=== PATIENT | male | born 2000 | race Caucasian/White ===

== ENCOUNTER 2023-04-26 16:56 | Emergency (ER) | payer OTHER ==
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
[2023-04-26 19:40] VITALS: BP 126/72; PULSE 97; RESP 18; TEMP 97.9
== END 2023-04-26 19:32 | disposition home or self-care (01) ==
LOC: EC 16:56
DX: M25.512 Pain in left shoulder (principal); F17.290 Nicotine dependence, other tobacco product, uncomplicated; V43.52XA Car driver injured in collision with other type car in traffic accident, initial encounter; Y92.410 Unspecified street and highway as the place of occurrence of the external cause
CPT/HCPCS: 72050; 99284

== ENCOUNTER 2024-05-21 13:14 | Emergency (ER) | payer OTHER ==
[2024-05-21 13:44] VITALS: RESP 18; TEMP 98.1
[2024-05-21 14:08] LABS: Basophils % (A) 0 %; Eosinophils % (A) 1 %; HCT 40.9 % (39.0-53.0); HGB 13.8 gm/dL (13.0-17.5); Lymphocytes # (A) 1.5 k/uL (1.0-4.8); Lymphocytes % (A) 27 %; MCHC 33.7 g/dL (31.0-37.0); MCV 94.9 fL (80.0-100.0); Monocytes # (A) 0.2 k/uL (0-1.0); Monocytes % (A) 3 %; Neutrophils # (A) 3.8 k/uL (1.3-7.7); Neutrophils % (A) 69 %; Platelet Count 305 k/uL (150-450); RBC 4.31 m/uL (4.30-5.90); RDW 13.2 % (11.5-15.5); WBC 5.5 k/uL (3.8-10.6)
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
[2024-05-21 14:17] LABS: ALT 35 U/L (4-49); AST 40 U/L (17-59); African American GFR (CKD) >90 (>60 ml/min/1.73 sqM); Albumin 4.5 g/dL (3.5-5.0); Alkaline Phosphatase 49 U/L (38-126); Anion Gap 8 mmol/L; Blood Urea Nitrogen 8 mg/dL (9-20); Calcium 9.1 mg/dL (8.4-10.2); Carbon Dioxide 22 mmol/L (22-30); Chloride 111 mmol/L (98-107); Glucose 104 mg/dL (74-99); Non-African American GFR(CKD) >90 (>60 ml/min/1.73 sqM); Potassium 3.7 mmol/L (3.5-5.1); Sodium 141 mmol/L (137-145); Total Bilirubin 0.7 mg/dL (0.2-1.3); Total Protein 6.9 g/dL (6.3-8.2)
[2024-05-21] MEDS: KETOROLAC 15 MG/ML 1 ML VIAL IVP STA (14:19)
[2024-05-21 14:20] LABS: Partial Thromboplastin Time 24.4 sec (22.0-30.0)
[2024-05-21] MEDS: LIDOCAINE 1% INJ 10MG/ML (20 ML MDV) SQ ONE (14:20)
[2024-05-21] MEDS: DIPH,PERTUS(ACELL)TETVAC-LF 0.5 ML VIAL IM ONE (14:21)
--- NOTE | 2024-05-21 14:27 | XR ---
EXAMINATION TYPE: XR wrist limited RT DATE OF EXAM: 05/21/2024 CLINICAL HISTORY: pain TECHNIQUE: Frontal, lateral and oblique images of the right wrist are obtained. COMPARISON: None. FINDINGS: There is no acute fracture/dislocation evident. The joint spaces appear within normal limits. Radiop aque densities are seen in the medial and lateral aspects of the right wrist. There is a vague linear radiolucency seen on the lateral image measuring 3.2 mm which could reflect small foreign body. Soft tissue injury seen. IMPRESSION: As above [facility], , 05/21/2024 2:25 PM
[2024-05-21] MEDS ORDERED: SODIUM CHLORIDE 0.9% 1,000 ML IV STA (17:56)
[2024-05-21] MEDS: LIDOCAINE 1%-EPI 1:100,000 20 ML VIAL SQ ONE (18:20)
[2024-05-21] MEDS: ACET/COD 300 MG/30 MG STARTER PACK 6 TAB BTL PO STA (19:37)
[2024-05-21 19:48] VITALS: BP 121/77; PULSE 90
== END 2024-05-21 19:44 | disposition home or self-care (01) ==
LOC: EC 13:14
CPT/HCPCS: 12005; 36415; 80053; 85025; 85610; 85730; 90471; 90715; 96374; 99283

== ENCOUNTER 2024-06-08 11:46 | Emergency (ER) | payer OTHER ==
--- NOTE | 2024-06-08 12:13 | ED ---
ENT HPI - General Source: patient, family Mode of arrival: ambulatory Limitations: no limitations - History of Present Illness Onset/Timin -: days(s) <Ayush Corado - Last Filed: 06/08/24 12:11> <Bradford Osullivan - Last Filed: 06/08/24 17:15> - General Stated complaint: dental pain Time Seen by Provider: 06/08/24 12:01 - History of Present Illness Initial comments: Quick note: This is a 24-year-old male presenting with significant other for right cheek swelling which started last night. Patient endorses associated hot/cold flashes and numbness and the affected side of his face. Patient's states he is scheduled for a root canal for a right tooth this coming Monday. (Ayush Corado) Dictation was produced using [employer] dictation software. please excuse any grammatical, word or spelling errors. Chief Complaint: 24-year-old male with facial pain History of Present Illness: 24-year-old male he had his teeth cleaned last week at the dentist office told him he needs a root canal. Over the last 2 days she has had severe swelling to the right face which affected his vision in his right eye. States the swelling went all the way up to his right denominational. Does complain of some pain at the submental space. He has been having symptoms of chills and fevers. He has an appointment in 2 days to have a root canal dental extraction. The ROS documented in this emergency department record has been reviewed and confirmed by me. Those systems with pertinent positive or negative responses have been documented in the HPI. All other systems are other negative and/or noncontributory. (Bradford Osullivan) - Related Data Previous Rx's Medication Instructions Recorded Bacitracin/Polymyx Oint 1 applic TOPICAL BID #30 gm 05/21/24 [Polysporin Oint] Cephalexin [Keflex] 500 mg PO Q6HR 1 Days #40 cap 05/21/24 Amoxic-Pot Clav 875-125Mg 1 tab PO BID 10 Days #20 tab 06/08/24 [Augmentin 875-125] Allergies Allergy/AdvReac Type Severity Reaction Status Date / Time No Known Allergies Allergy Verified 06/08/24 12:37 Review of Systems ROS Other: All systems not noted in ROS Statement are negative. <MakAyush - Last Filed: 06/08/24 12:11> ROS Other: All systems not noted in ROS Statement are negative. <Bradford Osullivan - Last Filed: 06/08/24 17:15> ROS Statement: Those systems with pertinent positive or pertinent negative responses have been documented in the HPI. Past Medical History Past Medical History: No Reported History History of Any Multi-Drug Resistant Organisms: None Reported Past Surgical History: No Surgical Hx Reported Past Psychological History: No Psychological Hx Reported Smoking Status: Current every day smoker, Vaper Past Alcohol Use History: None Reported Past Drug Use History: None Reported <MakAyush - Last Filed: 06/08/24 12:11> General Exam <MakAyush - Last Filed: 06/08/24 12:11> <Bradford Osullivan - Last Filed: 06/08/24 17:15> - General Exam Comments Initial Comments: Visual Physical Exam Vital signs reviewed General: Well-appearing, nontoxic, no acute distress. Head: Normocephalic, atraumatic. Right cheek swelling noted Eyes: PERRLA, EOMI ENT: Airway patent Chest: Nonlabored breathing Skin: No visual rash, normal skin tone Neuro: Alert and oriented 3 Musculoskeletal: No gross abnormalities (Ayush Corado) PHYSICAL EXAM: General Impression: Alert and oriented x3, not in acute distress HEENT: Normocephalic atraumatic, extra-ocular movements intact, pupils equal and reactive to light bilaterally, mucous membranes moist, poor dentition to the right mandibular teeth, swelling over the right mandible without any drainage coming from the right buccal area there is some reported tenderness without induration to the submental space uvula is midline without any peritonsillar fullness Cardiovascular: Heart regular rate and rhythm Chest: Able to complete full sentences, no retractions, no tachypnea Abdomen: abdomen soft, non-tender, non-distended, no organomegaly Musculoskeletal: Pulses present and equal in all extremities, no peripheral edema Motor: no focal deficits noted Neurological: CN II-XII grossly intact, no focal motor or sensory deficits noted Skin: Intact with no visualized rashes Psych: Normal affect and mood (Bradford Osullivan) Course Vital Signs 06/08/24 12:36 Temperature 99.9 F H Pulse Rate 103 H Respiratory 20 Rate Blood Pressure 152/91 O2 Sat by Pulse 99 Oximetry Medical Decision Making <Ayush Corado - Last Filed: 06/08/24 12:11> - Lab Data Result diagrams: 06/08/24 13:40 06/08/24 13:40 <Bradford Osullivan - Last Filed: 06/08/24 17:15> - Medical Decision Making I completed the quick note portion of this chart signed MARYAM Doshi (Ayush Corado) Was pt. sent in by a medical professional or institution ([facility], [facility] [employer] [employer], urgent care, hospital, or intermediate...) When possible be specific @ -No Did you speak to anyone other than the patient for history (EMS, parent, family, police, friend...)? What history was obtained from this source @ -No Did you review nursing and triage notes (agree or disagree)? Why? @ -I reviewed and agree with nursing and triage notes Were old charts reviewed (outside hosp., previous admission, EMS record, old EKG, old radiological studies, urgent care reports/EKG's, intermediate records)? Report findings @ -No old charts were reviewed Differential Diagnosis (chest pain, altered mental status, abdominal pain women, abdominal pain men, vaginal bleeding, musculoskeletal, weakness, fever, dyspnea, syncope, headache, dizziness, GI bleed, back pain, seizure, CVA, palpatations, mental health)? @ -Dental abscess, Clemente's angina, epiglottitis EKG interpreted by me (3pts min.). @ -None done X-rays interpreted by me (1pt min.). @ -None done CT interpreted by me (1pt min.). @ -CT soft tissue neck with contrast shows phlegmon to mandibular tooth no ab scess U/S interpreted by me (1pt. min.). @ -None done What testing was considered but not performed or refused? (CT, X-rays, U/S, labs)? Why? @ -None What meds were considered but not given or refused? Why? @ -None Was smoking cessation discussed for >3mins.? @ -No Were there social determinants of health that impacted care today? How? (Homelessness, low income, unemployed, alcoholism, drug addiction, transportation, low edu. Level, literacy, decrease access to med. care, long term, rehab)? @ -No Was there de-escalation of care discussed even if they declined (Discuss DNR or withdrawal of care, Hospice)? DNR status @ -No What co-morbidities impacted this encounter? (DM, HTN, Smoking, COPD, CAD, Cancer, CVA, ARF, Chemo, Hep., AIDS, mental health diagnosis, sleep apnea, morbid obesity)? @ -None Was patient admitted / discharged? Hospital course, mention meds given and route, prescriptions, significant lab abnormalities, going to OR and other pertinent info. @ -24-year-old male presents to the emergency department dental infection. He has associated constitutional symptoms low-grade temperature. Patient significant malaise. Laboratory evaluation obtained leukocytosis of 18.6. Rest of labs unremarkable. CT soft tissue neck with contrast shows dental infection with fat stranding to the mandibular soft tissues. Patient given Unasyn. IV fluids. Patient observed emergency department for approximately 5 hours and 30 minutes. At 515 patient states his symptoms are significantly proved. Disposition options were discussed. He would like to be discharged. He is given strict return precautions. He has an appointment with dentist in a couple days for planned dental extraction. Did you discuss the management of the patient with other professionals (professionals i.e. , PA, [employer], lab, RT, psych nurse, social media strategist, training program assistant, teacher, investment officer, block and case maker)? Give summary @ -No Was critical care preformed (if so, how long)? @ -No Undiagnosed new problem with uncertain prognosis? @ -No Drug Therapy requiring intensive monitoring for toxicity (Heparin, Nitro, Insulin, Cardizem)? @ -No Were any procedures done? @ -No Diagnosis/symptom? Acute, or Chronic, or Acute on Chronic? Uncomplicated (without systemic symptoms) or Complicated (systemic symptoms)? @ -Dental infection Side effects of treatment? @ -No Exacerbation, Progression, or Severe Exacerbation? @ -No Poses a threat to life or bodily function? How? (Chest pain, [place], [place], pneumonia, PE, COPD, DKA, ARF, appy, cholecystitis, CVA, Diverticulitis, Homicidal, Suicidal, threat to staff... and all critical care pts) @ -yes (Bradford Osullivan) - Lab Data Lab Results 06/08/24 06/08/24 Range/Units 13:40 13:40 WBC 18.6 H (3.8-10.6) k/uL RBC 4.00 L (4.30-5.90) m/uL Hgb 12.6 L (13.0-17.5) gm/dL Hct 38.6 L (39.0-53.0) % MCV 96.4 (80.0-100.0) fL MCH 31.4 (25.0-35.0) pg MCHC 32.6 (31.0-37.0) g/dL RDW 13.2 (11.5-15.5) % Plt Count 390 (150-450) k/uL MPV 7.0 Neutrophils % 83 % Lymphocytes % 8 % Monocytes % 7 % Eosinophils % 1 % Basophils % 0 % Neutrophils # 15.5 H (1.3-7.7) k/uL Lymphocytes # 1.6 (1.0-4.8) k/uL Monocytes # 1.2 H (0-1.0) k/uL Eosinophils # 0.2 (0-0.7) k/uL Basophils # 0.0 (0-0.2) k/uL Sodium 139 (137-145) mmol/L Potassium 3.7 (3.5-5.1) mmol/L Chloride 103 (98-107) mmol/L Carbon Dioxide 25 (22-30) mmol/L Anion Gap 11 mmol/L BUN 8 L (9-20) mg/dL Creatinine 0.95 (0.66-1.25) mg/dL Est GFR (CKD-EPI)AfAm >90 (>60 ml/min/1.73 sqM) Est GFR (CKD-EPI)NonAf >90 (>60 ml/min/1.73 sqM) Glucose 96 (74-99) mg/dL Calcium 9.5 (8.4-10.2) mg/dL Disposition <Ayush Corado - Last Filed: 06/08/24 12:11> Is patient prescribed a controlled substance at d/c from ED?: No Time of Disposition: 17:15 <Bradford Osullivan - Last Filed: 06/08/24 17:15> Clinical Impression: Dental infection Disposition: HOME SELF-CARE Condition: Good Instructions (If sedation given, give patient instructions): Dental Abscess (ED) Prescriptions: Amoxic-Pot Clav 875-125Mg [Augmentin 875-125] 1 tab PO BID 10 Days #20 tab Referrals: None,Stated [Primary Care Provider] - 1-2 days
[2024-06-08] MEDS: AMPICILLIN-SULBACTAM 3 GM in SODIUM CHLORIDE 0.9% 100 ML IVPB STA (13:42)
[2024-06-08] MEDS: SODIUM CHLORIDE 0.9% 1,000 ML IV STA (13:43)
[2024-06-08 13:51] LABS: Basophils % (A) 0 %; Eosinophils # (A) 0.2 k/uL (0-0.7); Eosinophils % (A) 1 %; HCT 38.6 % (39.0-53.0); HGB 12.6 gm/dL (13.0-17.5); Lymphocytes # (A) 1.6 k/uL (1.0-4.8); Lymphocytes % (A) 8 %; MCH 31.4 pg (25.0-35.0); MCHC 32.6 g/dL (31.0-37.0); MCV 96.4 fL (80.0-100.0); Monocytes # (A) 1.2 k/uL (0-1.0); Monocytes % (A) 7 %; Neutrophils # (A) 15.5 k/uL (1.3-7.7); Neutrophils % (A) 83 %; Platelet Count 390 k/uL (150-450); RDW 13.2 % (11.5-15.5); WBC 18.6 k/uL (3.8-10.6)
[2024-06-08 14:01] LABS: African American GFR (CKD) >90 (>60 ml/min/1.73 sqM); Anion Gap 11 mmol/L; Blood Urea Nitrogen 8 mg/dL (9-20); Calcium 9.5 mg/dL (8.4-10.2); Carbon Dioxide 25 mmol/L (22-30); Chloride 103 mmol/L (98-107); Glucose 96 mg/dL (74-99); Non-African American GFR(CKD) >90 (>60 ml/min/1.73 sqM); Potassium 3.7 mmol/L (3.5-5.1); Sodium 139 mmol/L (137-145)
--- NOTE | 2024-06-08 15:13 | CT ---
EXAMINATION TYPE: CT soft tissue neck w con DATE OF EXAM: 06/08/2024 2:56 PM COMPARISON: None available.. CLINICAL INDICATION: Male, 24 years old with history of facial abscess w systemic symptoms; PHH, RT s jadiel facial abscess with systemic symptoms. TECHNIQUE: Standard enhanced CT of the neck. Axial sections with coronal and sagittal reformats were obtained. Contrast used:100 mL of Isovue 300 with IV Contrast, CT DLP: 470.5 mGycm, Automated exposure control for dose reduction was used. FINDINGS: Study limited by streak artifact from dental amalgams. Brain: Visualized portions are grossly unremarkable. Orbits: Unremarkable Sinuses: Grossly unremarkable. Spaces of the neck: There is fat stranding and likely phlegmonous changes in the right submandibular soft tissues (axial images 62-66). No drainable fluid collection/abscess. There is periapical lucency involving a right mandibular canine Lymph nodes: Multiple enlarged right level 1 and level 2 lymph nodes measuring up to 14 mm in short a ccess. No pathologic enlarged left cervical chain lymphadenopathy. Vascular structures: Visualized major arteries are patent without evidence of aneurysm. Thoracic Inlet/airway: Airway is patent. The lung apices are clear. Soft tissues/Thyroid: Thyroid and remainder of the soft tissues are unremarkable. Other: none. IMPRESSION 1. Periapical lucency/periodontal disease surrounding a right mandibular canine with associated alyssa cent fat stranding and likely phlegmonous changes in the right submandibular subcutaneous tissues. No drainable fluid collection/abscess in the neck soft tissues at this time. 2. Enlarged right level 1 and level 2 cervical chain lymph nodes, possibly reactive in etiology. [facility], , 06/08/2024 3:11 PM
[2024-06-08] MEDS: ACET/COD 300 MG/30 MG STARTER PACK 6 TAB BTL PO STA (17:26)
[2024-06-08] MEDS: AMOXIC-POT CLAV 875MG STARTER PACK 2 TAB BTL PO STA (17:26)
[2024-06-08 17:33] VITALS: BP 130/72; PULSE 68; RESP 18; TEMP 98.1
== END 2024-06-08 18:01 | disposition home or self-care (01) ==
LOC: EC 11:46
DX: K04.7 Periapical abscess without sinus (principal); F17.290 Nicotine dependence, other tobacco product, uncomplicated
CPT/HCPCS: 36415; 80048; 85025; 87040; 70491; 99283; 96365; 96366 ×2; J0295; Q9967

== ENCOUNTER 2025-02-21 18:43 | Emergency (ER) | payer OTHER ==
[2025-02-21] MEDS: FAMOTIDINE 20 MG/2 ML VIAL IV STA (19:42)
[2025-02-21] MEDS: methylPREDNISolone SOD SUCCI 125 MG/2 ML VIAL IV STA (19:45)
[2025-02-21] MEDS: diphenhydrAMINE 50 MG/ML 1 ML VIAL IVP STA (19:46)
[2025-02-21 19:59] LABS: Basophils # (A) 0.05 10*3/uL (0.00-0.10); Basophils % (A) 0.6 %; Eosinophils # (A) 0.11 10*3/uL (0.04-0.35); Eosinophils % (A) 1.3 %; HCT 39.0 % (39.6-50.0); HGB 13.5 g/dL (13.0-17.0); Lymphocytes # (A) 2.60 10*3/uL (0.90-5.00); Lymphocytes % (A) 29.7 %; MCH 31.0 pg (27.0-32.0); MCHC 34.6 g/dL (32.0-37.0); MCV 89.7 fL (80.0-97.0); Monocytes # (A) 0.60 10*3/uL (0.20-1.00); Monocytes % (A) 6.9 %; Neutrophils # (A) 5.38 10*3/uL (1.80-7.70); Neutrophils % (A) 61.4 %; Platelet Count 249 10*3/uL (140-440); RBC 4.35 10*6/uL (4.40-5.60); RDW 12.8 % (11.5-14.5); WBC 8.75 10*3/uL (4.50-10.00)
--- NOTE | 2025-02-21 20:03 | XR ---
EXAMINATION TYPE: XR chest 2V DATE OF EXAM: 02/21/2025 7:58 PM COMPARISON: None. CLINICAL INDICATION: Male, 25 years old with history of Chest Pain, Chest pain TECHNIQUE: XR chest 2V views of the chest are obtained. FINDINGS: There is no focal air space opacity. No evidence for pneumothorax. No pleural effusion. The cardiac silhouette size is within normal limits. The osseous structures are grossly intact. IMPRESSION: 1. No acute cardiopulmonary process. [facility], , 02/21/2025 8:01 PM
--- NOTE | 2025-02-21 20:11 | ED ---
General Adult HPI - General Chief complaint: Allergic Reaction Stated complaint: Lip swelling Time Seen by Provider: 02/21/25 18:54 Source: patient, RN notes reviewed, old records reviewed Mode of arrival: ambulatory Limitations: no limitations - History of Present Illness Initial comments: 25-year-old male presenting for evaluation of lip swelling. Swelling began initially on the left but has progressed across across both lips. Patient does associate some mild dyspnea with this. He states this began after he was eating corn beef and cabbage. He states he is eaten this many times without allergic reaction in the past. Patient denies any antihypertensive medication, no new medications or new exposures. No vomiting. - Related Data Previous Rx's Medication Instructions Recorded Bacitracin/Polymyx Oint 1 applic TOPICAL BID #30 gm 05/21/24 [Polysporin Oint] Cephalexin [Keflex] 500 mg PO Q6HR 1 Days #40 cap 05/21/24 Amoxic-Pot Clav 875-125Mg 1 tab PO BID 10 Days #20 tab 06/08/24 [Augmentin 875-125] Famotidine [Pepcid] 20 mg PO DAILY #7 tablet 02/21/25 diphenhydrAMINE [Benadryl] 25 mg PO TID PRN #21 capsule 02/21/25 methylPREDNISolone Dose Pack 4 mg PO DIRECTED #21 packet 02/21/25 [Medrol Dose Pack] Allergies Allergy/AdvReac Type Severity Reaction Status Date / Time No Known Allergies Allergy Verified 02/21/25 18:51 Review of Systems ROS Statement: Those systems with pertinent positive or pertinent negative responses have been documented in the HPI. ROS Other: All systems not noted in ROS Statement are negative. Past Medical History Past Medical History: No Reported History History of Any Multi-Drug Resistant Organisms: None Reported Past Surgical History: No Surgical Hx Reported Past Psychological History: No Psychological Hx Reported Smoking Status: Current every day smoker, Vaper Past Alcohol Use History: None Reported Past Drug Use History: None Reported General Exam Limitations: no limitations General appearance: alert, in no apparent distress Head exam: Present: atraumatic, normocephalic Eye exam: Present: normal appearance, PERRL ENT exam: Present: other (Bilateral upper and lower lip swelling no tongue sw elling or uvular swelling) Respiratory exam: Present: normal lung sounds bilaterally. Absent: respiratory distress, wheezes Cardiovascular Exam: Present: regular rate, normal rhythm GI/Abdominal exam: Present: soft. Absent: distended, tenderness, guarding Extremities exam: Present: normal inspection, normal capillary refill Neurological exam: Present: alert, oriented X3, CN II-XII intact. Absent: motor sensory deficit Psychiatric exam: Present: normal affect, normal mood Skin exam: Present: warm, dry, intact Course Vital Signs 02/21/25 02/21/25 18:48 21:00 Temperature 97.8 F Pulse Rate 88 68 Respiratory 22 17 Rate Blood Pressure 109/61 108/73 O2 Sat by Pulse 98 98 Oximetry Medical Decision Making - Medical Decision Making Was pt. sent in by a medical professional or institution (, PA, COMMUNITY RECREATION PROGRAMMER, urgent care, hospital, or senior care...) When possible be specific @ -No Did you speak to anyone other than the patient for history (EMS, parent, family, police, friend...)? What history was obtained from this source @ -No Did you review nursing and triage notes (agree or disagree)? Why? @ -I reviewed and agree with nursing and triage notes Were old charts reviewed (outside hosp., previous admission, EMS record, old EKG, old radiological studies, urgent care reports/EKG's, senior care records)? Report findings @ -No old charts were reviewed Differential Diagnosis (chest pain, altered mental status, abdominal pain women, abdominal pain men, vaginal bleeding, weakness, fever, dyspnea, syncope, headache, dizziness, GI bleed, back pain, seizure, CVA, palpatations, mental health, musculoskeletal)? @ -Not applicable EKG interpreted by me (3pts min.). @ -[Sinus rhythm rate of 65, possible early repolarization, IA interval 163, QRS duration 104, QTc 408 X-rays interpreted by me (1pt min.). @ -2 view chest x-ray is negative for acute cardiopulmonary disease CT interpreted by me (1pt min.). @ -None done U/S interpreted by me (1pt. min.). @ -None done What testing was considered but not performed or refused? (CT, X-rays, U/S, labs)? Why? @ -None What meds were considered but not given or refused? Why? @ -None Did you discuss the management of the patient with other professionals (professionals i.e. , PA, COMMUNITY RECREATION PROGRAMMER, lab, RT, psych nurse, social and political studies professor, child caregiver, teacher, water resources technical officer, case coordinator)? Give summary @ -No Was smoking cessation discussed for >3mins.? @ -No Was critical care preformed (if so, how long)? @ -No Were there social determinants of health that impacted care today? How? (Homelessness, low income, unemployed, alcoholism, drug addiction, tra nsportation, low edu. Level, literacy, decrease access to med. care, alf, rehab)? @ -No Was there de-escalation of care discussed even if they declined (Discuss DNR or withdrawal of care, Hospice)? DNR status @ -No What co-morbidities impacted this encounter? (DM, HTN, Smoking, COPD, CAD, Cancer, CVA, ARF, Chemo, Hep., AIDS, mental health diagnosis, sleep apnea, morbid obesity)? @ -None Was patient admitted / discharged? Hospital course, mention meds given and route, prescriptions, significant lab abnormalities, going to OR and other pertinent info. @ -[25-year-old male with suspected allergic reaction, lip swelling. No tongue or uvular swelling, no wheezing or respiratory distress. No vomiting. This was likely food related as it began shortly after eating corn beef and cabbage. Patient given Benadryl, Pepcid, steroids in the emergency department with significant improvement. Vital signs are stable. Laboratory testing is unremarkable. Patient did request a tetanus shot in the emergency department for some abrasions and cuts that he is had over the past several weeks. Undiagnosed new problem with uncertain prognosis? @ -No Drug Therapy requiring intensive monitoring for toxicity (Heparin, Nitro, Insulin, Cardizem)? @ -No Were any procedures done? @ -No Diagnosis/symptom? @ -Allergic reaction Acute, or Chronic, or Acute on Chronic? @ -Acute Uncomplicated (without systemic symptoms) or Complicated (systemic symptoms)? @ -Default Side effects of treatment? @ -No Exacerbation, Progression, or Severe Exacerbation? @ -No Poses a threat to life or bodily function? How? (Chest pain, [place], [place], pneumonia, PE, COPD, DKA, ARF, appy, cholecystitis, CVA, Diverticulitis, Homicidal, Suicidal, threat to staff... and all critical care pts) @Low risk at this time - Lab Data Result diagrams: 02/21/25 19:51 02/21/25 19:51 Lab Results 02/21/25 02/21/25 02/21/25 Range/Units 19:51 19:51 19:51 WBC 8.75 (4.50-10.00) 10*3/uL RBC 4.35 L (4.40-5.60) 10*6/uL Hgb 13.5 (13.0-17.0) g/dL Hct 39.0 L (39.6-50.0) % MCV 89.7 (80.0-97.0) fL MCH 31.0 (27.0-32.0) pg MCHC 34.6 (32.0-37.0) g/dL Plt Count 249 (140-440) 10*3/uL MPV 9.2 L (9.5-12.2) fL Immature Gran % (Auto) 0.1 % Neutrophils % 61.4 % Lymphocytes % 29.7 % Monocytes % 6.9 % Eosinophils % 1.3 % Basophils % 0.6 % Immature Gran # 0.01 (0.00-0.04) 10*3/uL Neutrophils # 5.38 (1.80-7.70) 10*3/uL Lymphocytes # 2.60 (0.90-5.00) 10*3/uL Monocytes # 0.60 (0.20-1.00) 10*3/uL Eosinophils # 0.11 (0.04-0.35) 10*3/uL Basophils # 0.05 (0.00-0.10) 10*3/uL PT 11.7 (10.0-12.5) sec INR 1.1 (<1.2) APTT 25.8 (22.0-30.0) sec D-Dimer 0.57 (<0.60) mg/L FEU Sodium 143 (137-145) mmol/L Potassium 3.8 (3.5-5.1) mmol/L Chloride 106 (98-107) mmol/L Carbon Dioxide 20 L (22-30) mmol/L Anion Gap 17 mmol/L BUN 12 (9-20) mg/dL Creatinine 0.96 (0.66-1.25) mg/dL Est GFR (CKD-EPI)AfAm >90 (>60 ml/min/1.73 sqM) Est GFR (CKD-EPI)NonAf >90 (>60 ml/min/1.73 sqM) Glucose 83 (74-99) mg/dL Calcium 9.1 (8.4-10.2) mg/dL Magnesium 1.9 (1.6-2.3) mg/dL Total Bilirubin 1.0 (0.2-1.3) mg/dL AST 43 (17-59) U/L ALT 27 (4-49) U/L Alkaline Phosphatase 50 (38-126) U/L Troponin I (0.000-0.034) ng/mL Total Protein 7.9 (6.3-8.2) g/dL Albumin 5.0 (3.5-5.0) g/dL 02/21/25 Range/Units 19:51 WBC (4.50-10.00) 10*3/uL RBC (4.40-5.60) 10*6/uL Hgb (13.0-17.0) g/dL Hct (39.6-50.0) % MCV (80.0-97.0) fL MCH (27.0-32.0) pg MCHC (32.0-37.0) g/dL Plt Count (140-440) 10*3/uL MPV (9.5-12.2) fL Immature Gran % (Auto) % Neutrophils % % Lymphocytes % % Monocytes % % Eosinophils % % Basophils % % Immature Gran # (0.00-0.04) 10*3/uL Neutrophils # (1.80-7.70) 10*3/uL Lymphocytes # (0.90-5.00) 10*3/uL Monocytes # (0.20-1.00) 10*3/uL Eosinophils # (0.04-0.35) 10*3/uL Basophils # (0.00-0.10) 10*3/uL PT (10.0-12.5) sec INR (<1.2) APTT (22.0-30.0) sec D-Dimer (<0.60) mg/L FEU Sodium (137-145) mmol/L Potassium (3.5-5.1) mmol/L Chloride (98-107) mmol/L Carbon Dioxide (22-30) mmol/L Anion Gap mmol/L BUN (9-20) mg/dL Creatinine (0.66-1.25) mg/dL Est GFR (CKD-EPI)AfAm (>60 ml/min/1.73 sqM) Est GFR (CKD-EPI)NonAf (>60 ml/min/1.73 sqM) Glucose (74-99) mg/dL Calcium (8.4-10.2) mg/dL Magnesium (1.6-2.3) mg/dL Total Bilirubin (0.2-1.3) mg/dL AST (17-59) U/L ALT (4-49) U/L Alkaline Phosphatase (38-126) U/L Troponin I <0.012 (0.000-0.034) ng/mL Total Protein (6.3-8.2) g/dL Albumin (3.5-5.0) g/dL Disposition Clinical Impression: Allergic reaction Disposition: HOME SELF-CARE Condition: Fair Instructions (If sedation given, give patient instructions): General Allergic Reaction (ED), Food Allergy (ED) Prescriptions: diphenhydrAMINE [Benadryl] 25 mg PO TID PRN #21 capsule PRN Reason: Allergic Reaction methylPREDNISolone Dose Pack [Medrol Dose Pack] 4 mg PO DIRECTED #21 packet Famotidine [Pepcid] 20 mg PO DAILY #7 tablet Is patient prescribed a controlled substance at d/c from ED?: No Referrals: Nonstaff,Physician [Primary Care Provider] - 1-2 days Time of Disposition: 21:12
[2025-02-21 20:19] LABS: ALT 27 U/L (4-49); African American GFR (CKD) >90 (>60 ml/min/1.73 sqM); Albumin 5.0 g/dL (3.5-5.0); Anion Gap 17 mmol/L; Blood Urea Nitrogen 12 mg/dL (9-20); Calcium 9.1 mg/dL (8.4-10.2); Carbon Dioxide 20 mmol/L (22-30); Chloride 106 mmol/L (98-107); Glucose 83 mg/dL (74-99); INR 1.1 (<1.2); Non-African American GFR(CKD) >90 (>60 ml/min/1.73 sqM); Partial Thromboplastin Time 25.8 sec (22.0-30.0); Prothrombin Time 11.7 sec (10.0-12.5); Sodium 143 mmol/L (137-145); Total Protein 7.9 g/dL (6.3-8.2)
[2025-02-21 20:30] LABS: AST 43 U/L (17-59); Magnesium 1.9 mg/dL (1.6-2.3); Potassium 3.8 mmol/L (3.5-5.1)
[2025-02-21 20:31] LABS: Alkaline Phosphatase 50 U/L (38-126)
[2025-02-21] MEDS: DIPH,PERTUS(ACELL)TETVAC-LF 0.5 ML VIAL IM ONE (20:58)
[2025-02-21 21:02] VITALS: BP 108/73; RESP 17
[2025-02-21 21:23] VITALS: PULSE 56; TEMP 97.7
== END 2025-02-21 21:24 | disposition home or self-care (01) ==
LOC: EC 18:43
DX: T78.40XA Allergy, unspecified, initial encounter (principal); F17.290 Nicotine dependence, other tobacco product, uncomplicated; Z23 Encounter for immunization
CPT/HCPCS: 36415; 93005; 85379; 80053; 83735; 84484; 85025; 85610; 85730; 71046; 90715; 99284; 96374; 96375 ×2; 90471; J1200; J2919; J1308